=== PATIENT | female | born 1990 | race Caucasian/White ===

== ENCOUNTER 2017-05-07 21:45 | Emergency (ER) | payer BC ==
[~2017-05-07] VITALS: Ht 157.5 cm; Wt 61.2 kg
--- NOTE | 2017-05-07 21:45 | NUR ---
BIBSELF C/O ARUNA SHOULER ABSCESS X 1 MONTH. ON CLINDAMYCIN AND BACTRIM LEFT ARM I&D [facility] APR 25 2017, NAD NOTED, PHAN ROMERO FOR MD SUN.
[2017-05-08 00:21] VITALS: BP 142/96
== END 2017-05-08 00:22 | disposition home or self-care (01) ==
LOC: ER 21:50
DX: L98.499 Non-pressure chronic ulcer of skin of other sites with unspecified severity (principal); R03.0 Elevated blood-pressure reading, without diagnosis of hypertension
CPT/HCPCS: 99284; A4606; Z7610